=== PATIENT | female | born 1985 | race Caucasian/White ===

== ENCOUNTER 2016-08-05 20:43 | Emergency (ER) | payer OTHER ==
--- NOTE | 2016-08-05 23:12 | ED ORDER SUMMARY ---
..... Patient: ANANYA BOLDEN OrderSheet [facility] VisitID: [id number] [place] [address] 31y, F Registration Date/Time: 08/05/2016 ORDER SHEET Weight: 146.9 kg (stated) Allergies: Iodine, morphine, Penicillins, Latex GENERAL ORDERS: Rapid Influenza Screen (Nasal Pharyngeal) (swab ) Urgent (22:21 08/05/2016 Gene HARPER) (Ack 22:28 LMuller) (22:31 HOShaughromán R.N.) Chest 2V Urgent (22:32 08/05/2016 Gene HARPER) (Ack 22:33 LMuller) (22:55 MCampbell) MEDICATION ORDERS: Percocet PO 1 tab (HIGH ALERT MEDICATION, NOW) (22:33 08/05/2016 Gene HARPER) (Ack 22:33 RCollier R.N.) (22:39 RCollier R.N.) - (TAMIFLU 75 MG PO) (23:10 08/05/2016 Gene HARPER) (Ack 23:13 RCollier R.N.) (23:29 RCollier R.N.) IV FLUIDS: ORDER SHEET NOTES: [Electronically signed by Marilu Chase R.N. (23:33 08/05/2016)] [Electronically signed by Richard Carias MD (22:37 08/10/2016)] [Electronically locked/signed by Marilu Chase R.N. (23:33 08/05/2016)]
--- NOTE | 2016-08-05 23:12 | ED ORDER SUMMARY ---
..... Patient: ANANYA BOLDEN OrderSheet [facility] VisitID: [id number] [place] [address] 31y, F Registration Date/Time: 08/05/2016 ORDER SHEET Weight: 146.9 kg (stated) Allergies: Iodine, morphine, Penicillins, Latex GENERAL ORDERS: Rapid Influenza Screen (Nasal Pharyngeal) (swab ) Urgent (22:21 08/05/2016 Gene HARPER) (Ack 22:28 LMuller) (22:31 HOShaughromán R.N.) Chest 2V Urgent (22:32 08/05/2016 Gene HARPER) (Ack 22:33 LMuller) (22:55 MCampbell) MEDICATION ORDERS: Percocet PO 1 tab (HIGH ALERT MEDICATION, NOW) (22:33 08/05/2016 Gene HARPER) (Ack 22:33 RCollier R.N.) (22:39 RCollier R.N.) - (TAMIFLU 75 MG PO) (23:10 08/05/2016 Gene HARPER) (Ack 23:13 RCollier R.N.) (23:29 RCollier R.N.) IV FLUIDS: ORDER SHEET NOTES: [Electronically signed by Marilu Chase R.N. (23:33 08/05/2016)] [Electronically signed by Richard Carias MD (22:37 08/10/2016)] [Electronically locked/signed by Marilu Chase R.N. (23:33 08/05/2016)]
--- NOTE | 2016-08-05 23:12 | ED CLINICAL REPORT ---
Clinical Report - Physicians/Mid Levels [facility] [address] [place] [place] [address] 08/05/2016 20:46 Patient: ANANYA BOLDEN Time Seen: 22:02. Arrived- By private vehicle. Historian- patient. HISTORY OF PRESENT ILLNESS Chief Complaint: COUGH. RIB PAIN. This started today 11 years of chest tenderness. Tenderness worse today. Left lateral chest. No recent trauma and is still present. It was gradual in onset. The patient has had a cough (scant). She has had difficulty breathing (mild). She has had a sore throat and chest pain. No fever, muscle aches, chills, hoarseness or ear pain. Additional history - No recent travel. (No ANDRY or prior visits). Recent medical care: The patient was seen recently by a health care provider. ( [facility] [place]). REVIEW OF SYSTEMS Last normal menstrual period- Jul 18. No nausea, vomiting or diarrhea. PAST HISTORY PCP: Dr Jacobo REDDY Ops: Csection x 2 GB, TA Hosp: None Illness: Breast feeding, vasectomy. ADDITIONAL NOTES The nursing notes have been reviewed. PHYSICAL EXAM Vital Signs: 08/05/2016 23:29 BP: 116/57. HR: 103. RR: 20. O2 saturation: 96%. Temp: 99.6 F. Marquez-Perez pain scale: 4/10. 08/05/2016 21:55 Temp: 103.1 F. 08/05/2016 21:07 HR: 112. RR: 22. O2 saturation: 97%. Temp: 98.2 F. Appearance: Alert. No acute distress. Eyes: Pupils equal, round and reactive to light. ENT: Pharynx normal. Uvula midline. No tonsillar exudate, peritonsillar mass or muffled or hoarse voice. Neck: Normal inspection. Neck supple. CVS: Heart sounds normal. Respiratory: No respiratory distress. Breath sounds normal. Abdomen: Soft and nontender. No organomegaly. Back: Normal inspection. Skin: Skin warm. Normal skin color. Extremities: Extremities exhibit normal ROM. No lower extremity edema. Neuro: No alteration in mental status. LABS, X-RAYS, AND EKG Chest X-ray: Normal Chest X-Ray. Laboratory Tests: Rapid Influenza Screen: (LEIA: 08/05/2016 22:30) ( MsgRcvd 08/05/2016 22:55) Final results SPECIMEN DESCRIPTION: SWAB Test Result Flag Units (Reference) RAPID INFLUENZA SCREEN CALLED TO: CAMRON@2255 -- DATE: 08/05/16 INFLUENZA A: POSITIVE SCREEN FOR INFLUENZA A INFLUENZA B: NEGATIVE SCREEN FOR INFLUENZA B . PROGRESS AND PROCEDURES Course of Care: CXR is normal and influenza screen is positive. Disposition: Discharged. Condition: stable. CLINICAL IMPRESSION Influenza type A. INSTRUCTIONS Take Tylenol (Acetaminophen) or Motrin (Ibuprofen) as needed for fever control. Take medication according to label instructions. Do not work (OFF WORK 5-7 DAYS). Prescription Medications: Hydrocodone/APAP 5mg / 325mg: take 1-2 orally every 4 hours as needed for pain. Dispense fifteen (15). No refill. Tamiflu 75 mg: take 1 capsule orally every 12 hours for 5 days. Dispense ten (10). No refills. Substitution is permissible. Follow-up: Follow up with your doctor in five days if not better. Understanding of the discharge instructions verbalized by patient. (Electronically signed by Richard Carias MD 08/10/2016 22:37)
--- NOTE | 2016-08-05 23:12 | ED NURSING NOTES ---
Clinical Report - Nurses [place] [address] [place] [address] 08/05/2016 20:46 Patient: ANANYA BOLDEN TRIAGE Triage time 21:Aug 05 2016. Acuity: LEVEL 4. Alert. No acute distress. --21:16 Yesika Wang R.N. 21:07 08/05/16. HR: 112. RR: 22. O2 saturation: 97%. Temp: 98.2 F. Pain level now 05/13. --21:16 Yesika Wang R.N. Chief Complaint: (rib pain, cough). --23:33 Marilu Chase R.N. Weight: 146.9 kg stated. Height/Length: 65 inches Per Patient. BMI: 54. --21:06 Yesika Wang R.N. Medications Gabapentin Oral 300 mg, 3x a day. --21:11 Yesika Wang R.N. HydrOXYzine HCl Oral 50 mg, 3x a day. --21:12 Yesika Wang R.N. Meloxicam Oral (Tablet 15 mg). --21:12 Yesika Wang R.N. Pantoprazole Sodium Oral 40 mg. --21:12 Yesika Wang R.N. Ranitidine HCl Oral 300 mg. --21:12 Yesika Wang R.N. Allergies Iodine. --21:13 Yesika Wang R.N. morphine. --21:13 Yesika Wang R.N. Penicillins. --21:14 Yesika Wang R.N. Latex. --21:14 Yesika Wang R.N. History Arrived by private vehicle. Historian: patient. Primary physician (Dr. Centeno). ( Pt had a massage yesterday and had increased pain on the left side of her rib area. Went to [facility] and did a CXR. was told normal. Pt here because she has pain and her pain was not addressed at the clinic. Has cough and hurts to take a deep breath.). This started yesterday. 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 PAST MEDICAL HX: Last normal menstrual period- [place], irregular. Denies current . ( currently breast feeding). SOCIAL HX: Never smoker. Occasional alcohol use. No drug use. FALL RISK ASSESSMENT: Fall risk assessment completed. No fall risk identified. NUTRITIONAL RISK ASSESSMENT: The nutritional risk assessment revealed no deficiencies. FUNCTIONAL ASSESSMENT: Functional assessment: no impairments noted. LEARNING NEEDS ASSESSMENT: The learning needs assessment revealed no barriers. SKIN INTEGRITY ASSESSMENT: Skin integrity risk assessment completed. No skin integrity risk identified. --21:16 Yesika Wang R.N. Interventions ID band on patient. To room. --21:16 Yesika Wang R.N. NURSING PROGRESS NOTES Patient ready for evaluation- ED physician notified. --21:17 Yesika Wang R.N. 21:55 08/05/16. Temp: 103.1 F (oral). --21:56 bAner Gross R.N. The plan of care for this patient has been created. Patient gowned. Head of bed elevated. Reassurance given. The patient is resting quietly. --21:56 Abner Gross R.N. ( Patient able to stand and ambulate to the bathroom with an even and steady gait.). --22:17 Abner Gross R.N. The plan of care for this patient has been created. Head of bed elevated. Reassurance given to the patient. ( Flu swab obtain.). --22:36 Abner Gross R.N. Patient waiting for lab results. --22:36 Abner Gross R.N. 22:38 08/05/2016 Percocet (Oxycodone-Acetaminophen) PO 10/650 mg Tablets 1 tab given. Allergies verified, confirmed 5 rights and sedative warning given to the patient. --22:39 Marilu Chase R.N. ( LAB called to report +FLU A). --23:03 Marilu Chase R.N. 23:15 08/05/2016 Tamiflu PO Capsules 75 mg given. Allergies verified and confirmed 5 rights. --23:29 Marilu Chase R.N. DISPOSITION / DISCHARGE Condition at departure: improved and stable. No learning barriers present. Discharge instructions provided and reviewed with the patient. Reviewed medication(s) side effects, precautions, dosing and course information. Prescription(s) given to the patient. Patient verbalized understanding. Written instructions provided in Kyrgyz. The patient was discharged home and accompanied by head mixer. She left the Emergency Department ambulatory and via private vehicle. Crap Game Box Person driving. --23:30 Marilu Chase R.N. 23:29 08/05/16. BP: 116/57. HR: 103. RR: 20. O2 saturation: 96% on room air. Temp: 99.6 F (oral). Marquez-Perez pain scale: 4/10. --23:30 Marilu Chase R.N. Locked/Released at 08/05/2016 23:33 by Marilu Chase R.N.
--- NOTE | 2016-08-05 23:12 | ED CLINICAL REPORT ---
Clinical Report - Physicians/Mid Levels [facility] [address] [place] [address] 08/05/2016 20:46 Patient: ANANYA BOLDEN Time Seen: 22:02. Arrived- By private vehicle. Historian- patient. HISTORY OF PRESENT ILLNESS Chief Complaint: COUGH. RIB PAIN. This started today 11 years of chest tenderness. Tenderness worse today. Left lateral chest. No recent trauma and is still present. It was gradual in onset. The patient has had a cough (scant). She has had difficulty breathing (mild). She has had a sore throat and chest pain. No fever, muscle aches, chills, hoarseness or ear pain. Additional history - No recent travel. (No ANDRY or prior visits). Recent medical care: The patient was seen recently by a health care provider. ( [facility] [place]). REVIEW OF SYSTEMS Last normal menstrual period- Jul 18. No nausea, vomiting or diarrhea. PAST HISTORY PCP: Dr Jacobo REDDY Ops: Csection x 2 GB, TA Hosp: None Illness: Breast feeding, vasectomy. ADDITIONAL NOTES The nursing notes have been reviewed. PHYSICAL EXAM Vital Signs: 08/05/2016 23:29 BP: 116/57. HR: 103. RR: 20. O2 saturation: 96%. Temp: 99.6 F. Marquez-Perez pain scale: 4/10. 08/05/2016 21:55 Temp: 103.1 F. 08/05/2016 21:07 HR: 112. RR: 22. O2 saturation: 97%. Temp: 98.2 F. Appearance: Alert. No acute distress. Eyes: Pupils equal, round and reactive to light. ENT: Pharynx normal. Uvula midline. No tonsillar exudate, peritonsillar mass or muffled or hoarse voice. Neck: Normal inspection. Neck supple. CVS: Heart sounds normal. Respiratory: No respiratory distress. Breath sounds normal. Abdomen: Soft and nontender. No organomegaly. Back: Normal inspection. Skin: Skin warm. Normal skin color. Extremities: Extremities exhibit normal ROM. No lower extremity edema. Neuro: No alteration in mental status. LABS, X-RAYS, AND EKG Chest X-ray: Normal Chest X-Ray. Laboratory Tests: Rapid Influenza Screen: (LEIA: 08/05/2016 22:30) ( MsgRcvd 08/05/2016 22:55) Final results SPECIMEN DESCRIPTION: SWAB Test Result Flag Units (Reference) RAPID INFLUENZA SCREEN CALLED TO: CAMRON@2255 -- DATE: 08/05/16 INFLUENZA A: POSITIVE SCREEN FOR INFLUENZA A INFLUENZA B: NEGATIVE SCREEN FOR INFLUENZA B . PROGRESS AND PROCEDURES Course of Care: CXR is normal and influenza screen is positive. Disposition: Discharged. Condition: stable. CLINICAL IMPRESSION Influenza type A. INSTRUCTIONS Take Tylenol (Acetaminophen) or Motrin (Ibuprofen) as needed for fever control. Take medication according to label instructions. Do not work (OFF WORK 5-7 DAYS). Prescription Medications: Hydrocodone/APAP 5mg / 325mg: take 1-2 orally every 4 hours as needed for pain. Dispense fifteen (15). No refill. Tamiflu 75 mg: take 1 capsule orally every 12 hours for 5 days. Dispense ten (10). No refills. Substitution is permissible. Follow-up: Follow up with your doctor in five days if not better. Understanding of the discharge instructions verbalized by patient. (Electronically signed by Richard Carias MD 08/10/2016 22:37)
--- NOTE | 2016-08-05 23:12 | ED NURSING NOTES ---
Clinical Report - Nurses [place] [facility] [address] [place] [address] 08/05/2016 20:46 Patient: ANANYA BOLDEN TRIAGE Triage time 21:Aug 05 2016. Acuity: LEVEL 4. Alert. No acute distress. --21:16 Yesika Wang R.N. 21:07 08/05/16. HR: 112. RR: 22. O2 saturation: 97%. Temp: 98.2 F. Pain level now 05/13. --21:16 Yesika Wang R.N. Chief Complaint: (rib pain, cough). --23:33 Marilu Chase R.N. Weight: 146.9 kg stated. Height/Length: 65 inches Per Patient. BMI: 54. --21:06 Yesika Wang R.N. Medications Gabapentin Oral 300 mg, 3x a day. --21:11 Yesika Wang R.N. HydrOXYzine HCl Oral 50 mg, 3x a day. --21:12 Yesika Wang R.N. Meloxicam Oral (Tablet 15 mg). --21:12 Yesika Wang R.N. Pantoprazole Sodium Oral 40 mg. --21:12 Yesika Wang R.N. Ranitidine HCl Oral 300 mg. --21:12 Yesika Wang R.N. Allergies Iodine. --21:13 Yesika Wang R.N. morphine. --21:13 Yesika Wang R.N. Penicillins. --21:14 Yesika Wang R.N. Latex. --21:14 Yesika Wang R.N. History Arrived by private vehicle. Historian: patient. Primary physician (Dr. Centeno). ( Pt had a massage yesterday and had increased pain on the left side of her rib area. Went to [facility] and did a CXR. was told normal. Pt here because she has pain and her pain was not addressed at the clinic. Has cough and hurts to take a deep breath.). This started yesterday. 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 PAST MEDICAL HX: Last normal menstrual period- [place], irregular. Denies current . ( currently breast feeding). SOCIAL HX: Never smoker. Occasional alcohol use. No drug use. FALL RISK ASSESSMENT: Fall risk assessment completed. No fall risk identified. NUTRITIONAL RISK ASSESSMENT: The nutritional risk assessment revealed no deficiencies. FUNCTIONAL ASSESSMENT: Functional assessment: no impairments noted. LEARNING NEEDS ASSESSMENT: The learning needs assessment revealed no barriers. SKIN INTEGRITY ASSESSMENT: Skin integrity risk assessment completed. No skin integrity risk identified. --21:16 Yesika Wang R.N. Interventions ID band on patient. To room. --21:16 Yesika Wang R.N. NURSING PROGRESS NOTES Patient ready for evaluation- ED physician notified. --21:17 Yesika Wang R.N. 21:55 08/05/16. Temp: 103.1 F (oral). --21:56 Abner Gross R.N. The plan of care for this patient has been created. Patient gowned. Head of bed elevated. Reassurance given. The patient is resting quietly. --21:56 Abner Gross R.N. ( Patient able to stand and ambulate to the bathroom with an even and steady gait.). --22:17 Abner Gross R.N. The plan of care for this patient has been created. Head of bed elevated. Reassurance given to the patient. ( Flu swab obtain.). --22:36 Abner Gross R.N. Patient waiting for lab results. --22:36 Abner Gross R.N. 22:38 08/05/2016 Percocet (Oxycodone-Acetaminophen) PO 10/650 mg Tablets 1 tab given. Allergies verified, confirmed 5 rights and sedative warning given to the patient. --22:39 Marilu Chase R.N. ( LAB called to report +FLU A). --23:03 Marilu Chase R.N. 23:15 08/05/2016 Tamiflu PO Capsules 75 mg given. Allergies verified and confirmed 5 rights. --23:29 Marilu Chase R.N. DISPOSITION / DISCHARGE Condition at departure: improved and stable. No learning barriers present. Discharge instructions provided and reviewed with the patient. Reviewed medication(s) side effects, precautions, dosing and course information. Prescription(s) given to the patient. Patient verbalized understanding. Written instructions provided in Malay. The patient was discharged home and accompanied by news gathering technician. She left the Emergency Department ambulatory and via private vehicle. Occupational Therapy Technician driving. --23:30 Marilu Chase R.N. 23:29 08/05/16. BP: 116/57. HR: 103. RR: 20. O2 saturation: 96% on room air. Temp: 99.6 F (oral). Marquez-Perez pain scale: 4/10. --23:30 Marilu Chase R.N. Locked/Released at 08/05/2016 23:33 by Marilu Chase R.N.
--- NOTE | 2016-08-06 01:22 | DIAGNOSTIC IMAGING REPORT ---
PROCEDURE: XR CHEST 2 VIEW INDICATION: FEVER TECHNIQUE: PA and lateral views. COMPARISON: None. FINDINGS: Lungs are clear. Heart and mediastinum are normal. Mild degenerative change of the thoracic spine with accentuation of the lower thoracic kyphosis. IMPRESSION: 1. Negative chest.
--- NOTE | 2016-08-10 22:37 | ED DISCHARGE INSTRUCTIONS ---
Patient: ANANYA BOLDEN General Instructions [facility] VisitID: [id number] [place] [address] 31y, F Registration Date/Time: 08/05/2016 Influenza type A. INSTRUCTIONS Take Tylenol (Acetaminophen) or Motrin (Ibuprofen) as needed for fever control. Take medication according to label instructions. Do not work (OFF WORK 5-7 DAYS). Prescription Medications: Hydrocodone/APAP 5mg / 325mg: take 1-2 orally every 4 hours as needed for pain. Dispense fifteen (15). No refill. Tamiflu 75 mg: take 1 capsule orally every 12 hours for 5 days. Dispense ten (10). No refills. Substitution is permissible. Follow-up: Follow up with your doctor in five days if not better. Understanding of the discharge instructions verbalized by patient. ADDITIONAL INFORMATION Influenza (Adult) Influenza, also called the flu, is a viral illness that affects the air passages of the lungs. It differs from the common cold. It is highly contagious. It may be spread through the air by coughing and sneezing or by direct contact (touching the sick person and then touching your own eyes, nose or mouth). Illness starts 1-3 days after exposure and lasts for 1-2 weeks. Antibiotics are usually not needed unless a complication appears (ear or sinus infection or pneumonia). Symptoms may be mild or severe and can include extreme tiredness (wanting to stay in bed all day), chills, fevers, muscle aching, soreness with eye movement, headache, and a dry, hacking cough. Home Care: Avoid exposure to cigarette smoke (yours or others). Tylenol or ibuprofen (Advil) will help fever, muscle aching, and headache. To avoid risk of liver injury, aspirin should not be used in children and teenagers under 18 with this illness. Nausea and loss of appetite are common. A light diet is recommended. Avoid dehydration by drinking 6-8 glasses of fluids per day (water, sport drinks like Gatorade, soft drinks without caffeine, juices, tea, soup, etc.). Extra fluids will also help loosen secretions in the nose and lungs. Algf-ujq-auauklb cold medicines will not shorten the duration of the illness but may be helpful for the following symptoms: cough (Robitussin DM); sore throat (Chloraseptic lozenges or spray); nasal and sinus congestion (Actifed or Sudafed). [NOTE: Do not use decongestants if you have high blood pressure.] Stay home until your fever has been gone for at least 24 hours (without the use of fever-reducing medications such as ibuprofen). Follow Up with your doctor or as directed by our staff if you are not improving over the next week. Note: If you are age 65 or older, or if you have chronic asthma or COPD, we recommend a pneumococcal vaccinationevery five years. All adults shouldreceive a yearly influenza vaccination every . Ask your doctor about this. Get Prompt Medical Attention if any of the following occur: Cough with lots of colored sputum (mucus) or blood in your sputum Chest pain, shortness of breath, wheezing, or difficulty breathing Severe headache, face, neck or ear pain New rash Fever of 100.4F (38C) oral or higher, not better with fever medication Confusion, behavior change or seizure Severe weakness or dizziness Hydrocodone Bitartrate, Acetaminophen Oral tablet What is this medicine? ACETAMINOPHEN; HYDROCODONE (a set a SILVERIO gina fen; yary droe KOE done) is a pain reliever. It is used to treat mild to moderate pain. How should I use this medicine? Take this medicine by mouth. Swallow it with a full glass of water. Follow the directions on the prescription label. If the medicine upsets your stomach, take the medicine with food or milk. Do not take more than you are told to take. Talk to your transit coach operator regarding the use of this medicine in children. This medicine is not approved for use in children. What side effects may I notice from receiving this medicine? Side effects that you should report to your doctor or health wound care specialist as soon as possible: allergic reactions like skin rash, itching or hives, swelling of the face, lips, or tongue breathing problems confusion feeling faint or lightheaded, falls stomach pain yellowing of the eyes or skin Side effects that usually do not require medical attention (report to your doctor or health wound care specialist if they continue or are bothersome): nausea, vomiting stomach upset What may interact with this medicine? alcohol antihistamines isoniazid medicines for depression, anxiety, or psychotic disturbances medicines for sleep muscle relaxants naltrexone narcotic medicines (opiates) for pain phenobarbital ritonavir tramadol What if I miss a dose? If you miss a dose, take it as soon as you can. If it is almost time for your next dose, take only that dose. Do not take double or extra doses. Where should I keep my medicine? Keep out of the reach of children. This medicine can be abused. Keep your medicine in a safe place to protect it from theft. Do not share this medicine with anyone. Selling or giving away this medicine is dangerous and against the law. Store at room temperature between 15 and 30 degrees C (59 and 86 degrees F). Protect from light. Keep container tightly closed. Throw away any unused medicine after the expiration date. Discard unused medicine and used packaging carefully. Pets and children can be harmed if they find used or lost packages. What should I tell my health care provider before I take this medicine? They need to know if you have any of these conditions: brain tumor Crohn's disease, inflammatory bowel disease, or ulcerative colitis drink more than 3 alcohol-containing drinks per day drug abuse or addiction head injury heart or circulation problems kidney disease or problems going to the bathroom liver disease lung disease, asthma, or breathing problems an unusual or allergic reaction to acetaminophen, hydrocodone, other opioid analgesics, other medicines, foods, dyes, or preservatives or trying to get breast-feeding What should I watch for while using this medicine? Tell your doctor or health wound care specialist if your pain does not go away, if it gets worse, or if you have new or a different type of pain. You may develop tolerance to the medicine. Tolerance means that you will need a higher dose of the medicine for pain relief. Tolerance is normal and is expected if you take the medicine for a long time. Do not suddenly stop taking your medicine because you may develop a severe reaction. Your body becomes used to the medicine. This does NOT mean you are addicted. Addiction is a behavior related to getting and using a drug for a non-medical reason. If you have pain, you have a medical reason to take pain medicine. Your doctor will tell you how much medicine to take. If your doctor wants you to stop the medicine, the dose will be slowly lowered over time to avoid any side effects. You may get drowsy or dizzy when you first start taking the medicine or change doses. Do not drive, use machinery, or do anything that may be dangerous until you know how the medicine affects you. Stand or sit up slowly. There are different types of narcotic medicines (opiates) for pain. If you take more than one type at the same time, you may have more side effects. Give your health care provider a list of all medicines you use. Your doctor will tell you how much medicine to take. Do not take more medicine than directed. Call emergency for help if you have problems breathing. The medicine will cause constipation. Try to have a bowel movement at least every 2 to 3 days. If you do not have a bowel movement for 3 days, call your doctor or health wound care specialist. Too much acetaminophen can be very dangerous. Do not take Tylenol (acetaminophen) or medicines that contain acetaminophen with this medicine. Many non-prescription medicines contain acetaminophen. Always read the labels carefully. You have been given the following additional information: Influenza (Adult) Hydrocodone Bitartrate, Acetaminophen Oral tablet Do not work (OFF WORK 5-7 DAYS). (Electronically signed by Richard Carias MD 08/10/2016 22:37)
--- NOTE | 2016-08-10 22:37 | ED MED RECONCILIATION SUMMARY ---
Patient: ANANYA BOLDEN Medication Reconciliation Report [facility] VisitID: [id number] [place] [address] 31y, F Registration Date/Time: 08/05/2016 Weight: 146.9 kg Height/Length: 65 in. BMI: 54.0 ALLERGIES: Iodine, Latex, morphine, Penicillins The patient's Home Medications are listed below: THE FOLLOWING MEDICATIONS NEED TO BE RECONCILED: Gabapentin Oral 300 mg, 3x a day HydrOXYzine HCl Oral 50 mg, 3x a day Meloxicam Oral (15 mg) Pantoprazole Sodium Oral 40 mg Ranitidine HCl Oral 300 mg The source(s) of the original Home Medication information: Not obtained. The following Medications were given to the patient in the Emergency Department: Percocet [PO] PO 1 tab, administered: 08/05/2016 10:38:00 PM Tamiflu [PO] PO 75 mg, administered: 08/05/2016 11:15:00 PM The following Medications were prescribed to the patient: Hydrocodone/APAP 5mg / 325mg: take 1-2 orally every 4 hours as needed for pain. Dispense fifteen (15). No refill. -- Richard Carias MD Tamiflu 75 mg: take 1 capsule orally every 12 hours for 5 days. Dispense ten (10). No refills. Substitution is permissible. -- Richard Carias MD
--- NOTE | 2016-08-10 22:37 | ED MED RECONCILIATION SUMMARY ---
Patient: ANANYA BOLDEN Medication Reconciliation Report [facility] VisitID: [id number] [place] [address] 31y, F Registration Date/Time: 08/05/2016 Weight: 146.9 kg Height/Length: 65 in. BMI: 54.0 ALLERGIES: Iodine, Latex, morphine, Penicillins The patient's Home Medications are listed below: THE FOLLOWING MEDICATIONS NEED TO BE RECONCILED: Gabapentin Oral 300 mg, 3x a day HydrOXYzine HCl Oral 50 mg, 3x a day Meloxicam Oral (15 mg) Pantoprazole Sodium Oral 40 mg Ranitidine HCl Oral 300 mg The source(s) of the original Home Medication information: Not obtained. The following Medications were given to the patient in the Emergency Department: Percocet [PO] PO 1 tab, administered: 08/05/2016 10:38:00 PM Tamiflu [PO] PO 75 mg, administered: 08/05/2016 11:15:00 PM The following Medications were prescribed to the patient: Hydrocodone/APAP 5mg / 325mg: take 1-2 orally every 4 hours as needed for pain. Dispense fifteen (15). No refill. -- Richard Carias MD Tamiflu 75 mg: take 1 capsule orally every 12 hours for 5 days. Dispense ten (10). No refills. Substitution is permissible. -- Richard Carias MD
--- NOTE | 2016-08-10 22:37 | ED MAR SUMMARY ---
..... Medication Administration Record [facility] [address] [place] [address] Patient: ANANYA BOLDEN Visit ID: [id number] 31y, F Weight: 146.9 kg Height/Length: 65 in BMI: 54 ALLERGIES: Latex, Penicillins, morphine, Iodine Given 22:38 08/05/2016 Marilu Chase, RSherineNSherine Medication Administered: PERCOCET [PO] (OXYCODONE-ACETAMINOPHEN), Dose: 1 tab 10/650 mg Tablets PO. Medication Ordered: Percocet PO 1 tab (HIGH ALERT MEDICATION, NOW). Given 23:15 08/05/2016 Marilu Chase, RSherineN. Medication Administered: TAMIFLU [PO], Dose: 75 mg Capsules PO. Medication Ordered: - (TAMIFLU 75 MG PO).
--- NOTE | 2016-08-10 22:37 | ED DISCHARGE INSTRUCTIONS ---
Patient: ANANYA BOLDEN General Instructions [facility] VisitID: [id number] [place] [address] 31y, F Registration Date/Time: 08/05/2016 Influenza type A. INSTRUCTIONS Take Tylenol (Acetaminophen) or Motrin (Ibuprofen) as needed for fever control. Take medication according to label instructions. Do not work (OFF WORK 5-7 DAYS). Prescription Medications: Hydrocodone/APAP 5mg / 325mg: take 1-2 orally every 4 hours as needed for pain. Dispense fifteen (15). No refill. Tamiflu 75 mg: take 1 capsule orally every 12 hours for 5 days. Dispense ten (10). No refills. Substitution is permissible. Follow-up: Follow up with your doctor in five days if not better. Understanding of the discharge instructions verbalized by patient. ADDITIONAL INFORMATION Influenza (Adult) Influenza, also called the flu, is a viral illness that affects the air passages of the lungs. It differs from the common cold. It is highly contagious. It may be spread through the air by coughing and sneezing or by direct contact (touching the sick person and then touching your own eyes, nose or mouth). Illness starts 1-3 days after exposure and lasts for 1-2 weeks. Antibiotics are usually not needed unless a complication appears (ear or sinus infection or pneumonia). Symptoms may be mild or severe and can include extreme tiredness (wanting to stay in bed all day), chills, fevers, muscle aching, soreness with eye movement, headache, and a dry, hacking cough. Home Care: Avoid exposure to cigarette smoke (yours or others). Tylenol or ibuprofen (Advil) will help fever, muscle aching, and headache. To avoid risk of liver injury, aspirin should not be used in children and teenagers under 18 with this illness. Nausea and loss of appetite are common. A light diet is recommended. Avoid dehydration by drinking 6-8 glasses of fluids per day (water, sport drinks like Gatorade, soft drinks without caffeine, juices, tea, soup, etc.). Extra fluids will also help loosen secretions in the nose and lungs. Amui-tdu-leybccp cold medicines will not shorten the duration of the illness but may be helpful for the following symptoms: cough (Robitussin DM); sore throat (Chloraseptic lozenges or spray); nasal and sinus congestion (Actifed or Sudafed). [NOTE: Do not use decongestants if you have high blood pressure.] Stay home until your fever has been gone for at least 24 hours (without the use of fever-reducing medications such as ibuprofen). Follow Up with your doctor or as directed by our staff if you are not improving over the next week. Note: If you are age 65 or older, or if you have chronic asthma or COPD, we recommend a pneumococcal vaccinationevery five years. All adults shouldreceive a yearly influenza vaccination every . Ask your doctor about this. Get Prompt Medical Attention if any of the following occur: Cough with lots of colored sputum (mucus) or blood in your sputum Chest pain, shortness of breath, wheezing, or difficulty breathing Severe headache, face, neck or ear pain New rash Fever of 100.4F (38C) oral or higher, not better with fever medication Confusion, behavior change or seizure Severe weakness or dizziness Hydrocodone Bitartrate, Acetaminophen Oral tablet What is this medicine? ACETAMINOPHEN; HYDROCODONE (a set a SILVERIO gina fen; yary droe KOE done) is a pain reliever. It is used to treat mild to moderate pain. How should I use this medicine? Take this medicine by mouth. Swallow it with a full glass of water. Follow the directions on the prescription label. If the medicine upsets your stomach, take the medicine with food or milk. Do not take more than you are told to take. Talk to your senior lead software engineer regarding the use of this medicine in children. This medicine is not approved for use in children. What side effects may I notice from receiving this medicine? Side effects that you should report to your doctor or health home health care physician as soon as possible: allergic reactions like skin rash, itching or hives, swelling of the face, lips, or tongue breathing problems confusion feeling faint or lightheaded, falls stomach pain yellowing of the eyes or skin Side effects that usually do not require medical attention (report to your doctor or health home health care physician if they continue or are bothersome): nausea, vomiting stomach upset What may interact with this medicine? alcohol antihistamines isoniazid medicines for depression, anxiety, or psychotic disturbances medicines for sleep muscle relaxants naltrexone narcotic medicines (opiates) for pain phenobarbital ritonavir tramadol What if I miss a dose? If you miss a dose, take it as soon as you can. If it is almost time for your next dose, take only that dose. Do not take double or extra doses. Where should I keep my medicine? Keep out of the reach of children. This medicine can be abused. Keep your medicine in a safe place to protect it from theft. Do not share this medicine with anyone. Selling or giving away this medicine is dangerous and against the law. Store at room temperature between 15 and 30 degrees C (59 and 86 degrees F). Protect from light. Keep container tightly closed. Throw away any unused medicine after the expiration date. Discard unused medicine and used packaging carefully. Pets and children can be harmed if they find used or lost packages. What should I tell my health care provider before I take this medicine? They need to know if you have any of these conditions: brain tumor Crohn's disease, inflammatory bowel disease, or ulcerative colitis drink more than 3 alcohol-containing drinks per day drug abuse or addiction head injury heart or circulation problems kidney disease or problems going to the bathroom liver disease lung disease, asthma, or breathing problems an unusual or allergic reaction to acetaminophen, hydrocodone, other opioid analgesics, other medicines, foods, dyes, or preservatives or trying to get breast-feeding What should I watch for while using this medicine? Tell your doctor or health home health care physician if your pain does not go away, if it gets worse, or if you have new or a different type of pain. You may develop tolerance to the medicine. Tolerance means that you will need a higher dose of the medicine for pain relief. Tolerance is normal and is expected if you take the medicine for a long time. Do not suddenly stop taking your medicine because you may develop a severe reaction. Your body becomes used to the medicine. This does NOT mean you are addicted. Addiction is a behavior related to getting and using a drug for a non-medical reason. If you have pain, you have a medical reason to take pain medicine. Your doctor will tell you how much medicine to take. If your doctor wants you to stop the medicine, the dose will be slowly lowered over time to avoid any side effects. You may get drowsy or dizzy when you first start taking the medicine or change doses. Do not drive, use machinery, or do anything that may be dangerous until you know how the medicine affects you. Stand or sit up slowly. There are different types of narcotic medicines (opiates) for pain. If you take more than one type at the same time, you may have more side effects. Give your health care provider a list of all medicines you use. Your doctor will tell you how much medicine to take. Do not take more medicine than directed. Call emergency for help if you have problems breathing. The medicine will cause constipation. Try to have a bowel movement at least every 2 to 3 days. If you do not have a bowel movement for 3 days, call your doctor or health home health care physician. Too much acetaminophen can be very dangerous. Do not take Tylenol (acetaminophen) or medicines that contain acetaminophen with this medicine. Many non-prescription medicines contain acetaminophen. Always read the labels carefully. You have been given the following additional information: Influenza (Adult) Hydrocodone Bitartrate, Acetaminophen Oral tablet Do not work (OFF WORK 5-7 DAYS). (Electronically signed by Richard Carias MD 08/10/2016 22:37)
--- NOTE | 2016-08-10 22:37 | ED MAR SUMMARY ---
..... Medication Administration Record [facility] [address] [place] [address] Patient: ANANYA BOLDEN Visit ID: [id number] 31y, F Weight: 146.9 kg Height/Length: 65 in BMI: 54 ALLERGIES: Latex, Penicillins, morphine, Iodine Given 22:38 08/05/2016 Marilu Chase, RSherineNSherine Medication Administered: PERCOCET [PO] (OXYCODONE-ACETAMINOPHEN), Dose: 1 tab 10/650 mg Tablets PO. Medication Ordered: Percocet PO 1 tab (HIGH ALERT MEDICATION, NOW). Given 23:15 08/05/2016 Marilu Chase, RSherineN. Medication Administered: TAMIFLU [PO], Dose: 75 mg Capsules PO. Medication Ordered: - (TAMIFLU 75 MG PO).
== END 2016-08-05 23:28 | disposition home or self-care (01) ==
LOC: ED SRH 20:43
DX: J10.1 Influenza due to other identified influenza virus with other respiratory manifestations (principal); Z88.0 Allergy status to penicillin; Z88.5 Allergy status to narcotic agent; Z91.041 Radiographic dye allergy status; Z91.040 Latex allergy status
CPT/HCPCS: 91400